=== PATIENT | female | born 2000 | race Caucasian/White ===

== ENCOUNTER 2019-07-10 06:16 | Inpatient (IN) ==
[2019-07-10] MEDS ORDERED: D5 1/2 NS 1000 ML 1,000 ML ONE ×2 (06:27→14:41)
--- NOTE | 2019-07-10 07:14 | DR.OB ---
OB Quick Note - Assessment/Plan Assessment/Plan: L&D 07/10/19 at 6:50am S-No complaint. O-Afebrile,VSS [id number] with good LTV, +accel, no decel. CTX=q 1 1/2 to 3 min., mild by palpation CVX=2-3cm/75%/0/VTX AROM with clear fluid. IUPC and FSE placed. A-IUP at 38 4/7 weeks for induction Oligohydramnios P-Begin pitocin induction Anticipate
[2019-07-10] MEDS ORDERED: PHENERGAN INJ 25 MG IM PRN ×2 (07:30→15:59)
[2019-07-10] MEDS ORDERED: REGLAN INJ 10 MG VIAL IVP PRN (07:30)
[2019-07-10] MEDS ORDERED: PITOCIN IVP ONE (07:30)
[2019-07-10] MEDS ORDERED: MORPHINE SULFATE INJ 2 MG INJ IVP PRN (07:30)
[2019-07-10] MEDS ORDERED: D5LR 1L W PITOCIN 10 UNITS/L 10 UNITS/1,000 ML BAG IV PRN (07:30)
[2019-07-10] MEDS ORDERED: NUBAIN INJ 200 MG VIAL MULTIDOSE IVP PRN (07:30)
[2019-07-10] MEDS ORDERED: D5 1/2 NS 1L W PITOCIN 20 UNITS/L 20 UNITS/1,000 ML BAG IV ONE (07:36)
[2019-07-10] MEDS ORDERED: NUBAIN INJ 10 ONE ×3 (09:45→14:07)
[2019-07-10] MEDS: D5 1/2 NS 1000 ML 1,000 ML IV SCH ×2 (11:26→16:36)
--- NOTE | 2019-07-10 12:03 | DR.OB ---
OB Quick Note - Assessment/Plan Assessment/Plan: L&D 07/10/19 at 11:57am Pitocin=12mu/min. S-No complaint except pain with CTX. O-Afebrile,VSS OQU=102 with good LTV, +accel, no decel. CTX=q 1 1/2 to 2 min., about 35-60mmHg CVX=4cm/90%/0 A-IUP at 38 4/7 weeks for induction Oligohydramnios P-Cont. pitocin induction Anticipate
[2019-07-10] MEDS ORDERED: MORPHINE SULFATE INJ 2 MG INJ ONE (12:46)
--- NOTE | 2019-07-10 16:29 | DR.OB ---
OB Quick Note - Assessment/Plan Assessment/Plan: Delivery Note SUBMARINE CABLE EQUIPMENT TECHNICIAN 07/10/19 at 15:46 Patient complete and pushing. Head delivered over intact perineum. Nuchal cord x 1 reduced. Nose and mouth bulb suctioned. Body delivered over intact perineum. Cord clamped x 2 and cut. Infant handed to attendant. Cord sent for gases. Placenta delivered spontaneously / intact / 3 vessel cord. No CVX / vaginal / perineal tears. Viable female , VTX/OA, wt=6'12" and 3/7, stable to NBN. Mother stable to RR. GJJ=[id number].
[2019-07-10] MEDS ORDERED: AMBIEN PO PRN (17:18)
[2019-07-10] MEDS ORDERED: ADACEL or BOOSTRIX TDaP VACCINE IM ONE (17:18)
[2019-07-10] MEDS ORDERED: DERMOPLAST SPRAY TOP PRN (17:18)
[2019-07-10] MEDS ORDERED: MILK OF MAGNESIA PO PRN (17:18)
[2019-07-10] MEDS: D5 1/2 NS 1000 ML 1,000 ML with PITOCIN 20 UNITS IV SCH ×2 (17:27)
[2019-07-10] MEDS: MOTRIN TAB 800 MG PO PRN (20:44)
[2019-07-10] MEDS: ZANTAC PO SCH (20:45)
[2019-07-11] MEDS: D5 1/2 NS 1000 ML 1,000 ML with PITOCIN 20 UNITS IV SCH ×2 (03:24)
[2019-07-11 05:07] LABS: HEMATOCRIT 29.7 % (36.0-47.0); HEMOGLOBIN 10.3 g/dL (12.0-16.0)
[2019-07-11] MEDS: ZANTAC PO SCH ×2 (09:16→21:39)
[2019-07-11] MEDS: PRENATAL PLUS PO SCH (09:16)
[2019-07-11] MEDS: MOTRIN TAB 800 MG PO PRN (13:30)
[2019-07-12 00:09] VITALS: BP 101/56
[2019-07-12] MEDS: MOTRIN TAB 800 MG PO PRN (07:47)
[2019-07-12] MEDS: ZANTAC PO SCH (08:00)
[2019-07-12] MEDS: PRENATAL PLUS PO SCH (08:00)
== END 2019-07-12 13:47 | disposition home or self-care (01) | DRG 807 ==
LOC: LD 06:16 → MED/SURG 17:25
PROVIDERS: ADMIT Specialist; ATTEND Specialist
DX: Z3A.38 38 weeks gestation of pregnancy; Z23 Encounter for immunization; O41.03X0 Oligohydramnios, third trimester, not applicable or unspecified; R87.619 Unspecified abnormal cytological findings in specimens from cervix uteri; Z37.0 Single live birth; Z01.818 Encounter for other preprocedural examination; O99.613 Diseases of the digestive system complicating pregnancy, third trimester
CPT/HCPCS: 36415; 59409; 80048; 80307; 81001; 85014; 85018; 85025; 86592; 86850; 86900; 86901; 90715; A4216; S0197; G0434; J2270; J2300; J2590; S5010

== ENCOUNTER 2021-06-12 06:00 | Inpatient (IN) ==
[2021-06-12] MEDS ORDERED: D5LR 1L W PITOCIN 10 UNITS/L 10 UNITS/1,000 ML BAG IV ONE (06:44)
[2021-06-12] MEDS ORDERED: PITOCIN ONE (06:44)
[2021-06-12] MEDS ORDERED: D5 1/2 NS 1000 ML 1,000 ML IV ONE (06:44)
[2021-06-12] MEDS ORDERED: BETADINE SOLN ONE (06:44)
[2021-06-12] MEDS ORDERED: D5 1/2 NS 1L W PITOCIN 20 UNITS/L 20 UNITS/1,000 ML BAG IV ONE (06:44)
[2021-06-12] MEDS ORDERED: NS 100 ML IV 100 ML ONE ×2 (06:45→11:09)
[2021-06-12] MEDS ORDERED: AMPICILLIN VIAL 2 GRAM ONE (06:45)
[2021-06-12] MEDS: D5 1/2 NS 1000 ML 1,000 ML IV SCH ×2 (07:15→17:49)
--- NOTE | 2021-06-12 07:27 | DR.OB ---
OB Quick Note - Assessment/Plan Assessment/Plan: L&D 06/12/21 at 7:15am S-No complaint. O-Afebrile,VSS [id number]=630 with good LTV, +accel, no decel. CTX=none CVX=3cm/75%/-1/VTX AROM with clear fluid. IUPC and FSE placed. A-IUP at 39 2/7 weeks for induction +GBS Multiparity desiring permanent sterilization P-Begin pitocin induction IV ABX in labor for +GBS Anticipate with PP BTL as desired
[2021-06-12] MEDS ORDERED: PITOCIN IVP ONE (08:07)
[2021-06-12] MEDS ORDERED: MORPHINE SULFATE INJ 2 MG INJ IVP PRN (08:07)
[2021-06-12] MEDS ORDERED: NUBAIN INJ 200 MG VIAL MULTIDOSE IVP PRN (08:07)
[2021-06-12] MEDS ORDERED: AMPICILLIN VIAL 2 GRAM 2 G in NS 100 ML IV + SPIKE MINIBAG* 100 ML IV SCH (08:07)
[2021-06-12] MEDS ORDERED: PHENERGAN INJ 25 MG IM PRN ×3 (08:07→17:22)
[2021-06-12] MEDS ORDERED: REGLAN INJ 10 MG VIAL IVP PRN (08:07)
[2021-06-12] MEDS ORDERED: D5LR 1L W PITOCIN 10 UNITS/L 10 UNITS/1,000 ML BAG IV PRN (08:07)
[2021-06-12] MEDS ORDERED: STADOL INJ ONE ×2 (08:35→12:09)
[2021-06-12] MEDS: STADOL INJ IVP PRN ×2 (08:37→12:09)
[2021-06-12] MEDS: VSL#3 PO SCH (09:28)
[2021-06-12] MEDS ORDERED: AMPICILLIN VIAL 1 GRAM ONE (11:09)
[2021-06-12] MEDS: AMPICILLIN VIAL 1 GRAM 1 G in NS 50 ML IV + SPIKE MINIBAG* 50 ML IV SCH ×2 (11:15→12:39)
[2021-06-12] MEDS ORDERED: MOTRIN TAB 800 MG PO PRN (12:20)
--- NOTE | 2021-06-12 12:25 | DR.OB ---
OB Quick Note - Assessment/Plan Assessment/Plan: Delivery Note MAIL AGENT 06/12/21 at 12:03pm Patient complete and pushing. Head delivered over intact perineum. No nuchal cord. Nose and mouth bulb suctioned. Body delivered over intact perineum. A compound presentation with left hand at head noted. Cord clamped x 2 and cut. handed to attendant. Cord sent for gases. Placenta delivered spontaneously / intact / 3 vessel cord. No CVX / vaginal / perineal tears noted. Viable female infant, VTX/OA, wt=7'7" and 9/9, stable to NBN. Mother stable to RR. [id number].
[2021-06-12] MEDS ORDERED: BRIDION ONE (12:40)
[2021-06-12] MEDS ORDERED: ZEMURON 50 MG VIAL ONE (12:40)
[2021-06-12] MEDS ORDERED: FENTANYL INJ 100 mcg ONE (12:40)
[2021-06-12] MEDS ORDERED: OFIRMEV IV 1000 MG VIAL 1,000 MG/100 ML VIAL IV ONE (12:40)
[2021-06-12] MEDS ORDERED: DILAUDID INJ ONE ×2 (12:41→17:28)
[2021-06-12] MEDS ORDERED: LR 1000 ML IV 1,000 ML IV ONE ×2 (13:10→16:31)
[2021-06-12] MEDS: D5 1/2 NS 1000 ML 1,000 ML with PITOCIN 20 UNITS IV SCH ×2 (14:38)
[2021-06-12] MEDS ORDERED: ANCEF 1 GRAM IV PREMIX* 1 G/50 ML BAG IV ONE (16:04)
[2021-06-12] MEDS ORDERED: TORADOL 30 MG VIAL ONE (16:25)
[2021-06-12] MEDS ORDERED: ULTANE GAS IN ONE (16:25)
[2021-06-12] MEDS ORDERED: DIPRIVAN VIAL ONE (16:25)
[2021-06-12] MEDS ORDERED: ZOFRAN INJ 4 MG VIAL ONE (16:25)
[2021-06-12] MEDS ORDERED: LACRI-LUBE S.O.P. ONE (16:25)
[2021-06-12] MEDS ORDERED: VERSED ONE (16:25)
[2021-06-12] MEDS ORDERED: DECADRON INJ ONE (16:25)
[2021-06-12] MEDS ORDERED: DILAUDID INJ IVP PRN (17:22)
[2021-06-12] MEDS ORDERED: BENADRYL INJ 50 MG VIAL IVP PRN (17:22)
[2021-06-12] MEDS ORDERED: ZOFRAN INJ 4 MG VIAL IVP PRN (17:22)
[2021-06-12] MEDS ORDERED: DERMOPLAST PAIN RELIEF SPRAY TOP PRN (18:09)
[2021-06-12] MEDS ORDERED: ADACEL or BOOSTRIX TDaP VACCINE IM ONE (18:09)
[2021-06-12] MEDS ORDERED: MILK OF MAGNESIA PO PRN ×2 (18:09)
[2021-06-12] MEDS ORDERED: PERCOCET TAB 5/325 MG PO PRN (18:09)
[2021-06-12] MEDS ORDERED: MYLICON TAB 80 MG CHEW PO PRN (18:09)
[2021-06-12] MEDS ORDERED: AMBIEN PO PRN ×2 (18:09)
[2021-06-13 05:47] LABS: HEMATOCRIT 27.9 % (36.0-47.0); HEMOGLOBIN 9.2 g/dL (12.0-16.0)
[2021-06-13] MEDS: D5 1/2 NS 1000 ML 1,000 ML with PITOCIN 20 UNITS IV SCH ×4 (05:51→14:17)
[2021-06-13] MEDS ORDERED: TORADOL 30 MG VIAL ONE (07:32)
[2021-06-13] MEDS ORDERED: ZOFRAN INJ 4 MG VIAL ONE (07:32)
[2021-06-13] MEDS ORDERED: DIPRIVAN VIAL ONE (07:32)
[2021-06-13] MEDS ORDERED: XYLOCAINE 2 % (PLAIN) ONE (07:32)
[2021-06-13] MEDS ORDERED: VERSED ONE (07:32)
[2021-06-13] MEDS ORDERED: BACTROBAN TOPICAL OINT TOP SCH (07:45)
[2021-06-13] MEDS ORDERED: PRENATAL PLUS PO SCH (09:00)
[2021-06-13] MEDS: VSL#3 PO SCH (09:40)
[2021-06-13] MEDS ORDERED: ADACEL or BOOSTRIX TDaP VACCINE IM ONE (11:27)
[2021-06-13 12:08] VITALS: BP 98/56
== END 2021-06-13 15:00 | disposition home or self-care (01) | DRG 797 ==
LOC: LD 06:33 → MED/SURG 14:27
PROVIDERS: ADMIT Specialist; ATTEND Specialist
DX: O98.32 Other infections with a predominantly sexual mode of transmission complicating childbirth; A59.9 Trichomoniasis, unspecified; Z3A.39 39 weeks gestation of pregnancy; O99.834 Other infection carrier state complicating childbirth; Z37.0 Single live birth; D50.9 Iron deficiency anemia, unspecified; O98.52 Other viral diseases complicating childbirth; A56.8 Sexually transmitted chlamydial infection of other sites; O99.02 Anemia complicating childbirth; Z30.2 Encounter for sterilization; O99.824 Streptococcus B carrier state complicating childbirth; Z20.822 Contact with and (suspected) exposure to COVID-19